=== PATIENT | male | born 1940 | race Caucasian/White ===

== ENCOUNTER 2025-03-02 10:09 | Emergency (ER) | payer MEDICARE, BC | END 2025-03-02 12:44 | disposition home or self-care (01) | LOC: JP.ED 10:09 | DX: J10.1 Influenza due to other identified influenza virus with other respiratory manifestations (principal); Z88.0 Allergy status to penicillin; Z88.1 Allergy status to other antibiotic agents; Z79.82 Long term (current) use of aspirin; Z79.899 Other long term (current) drug therapy | CPT/HCPCS: 87428-QW; 99283; 99284 ==